=== PATIENT | male | born 1965 | race Caucasian/White ===

== ENCOUNTER 2019-08-01 10:51 | Observation (INO) | payer OTHER ==
[2019-08-01 12:25] LABS: Absolute Lymphocytes (CBC) 1.4 K/uL (0.7-4.9); Basophils % 0.3 % (0-1.3); Hematocrit 43.6 % (39.6-49.0); Lymphocytes % 13.7 % (15.3-44.8); MPV 7.7 fL (7.6-11.3); RBC Red Blood Cell Count 5.55 M/uL (4.33-5.43)
[2019-08-01 12:30] LABS: Protime INR 1.09
--- NOTE | 2019-08-01 12:44 | RAD REPORT ---
EXAM DESCRIPTION: CT - Head Brain Wo Cont - 08/01/2019 12:35 pm CLINICAL HISTORY: sub acute aphasia Headache, drowsiness COMPARISON: SINUS W O CONTRAST dated 12/05/2009; HEAD BRAIN W O CONTRAST dated 02/23/2009 TECHNIQUE: All CT scans are performed using dose optimization technique as appropriate and may inclu de automated exposure control or mA/KV adjustment according to patient size. FINDINGS: No intracranial hemorrhage, hydrocephalus or extra-axial fluid collection.Subtle area of d iminished density is noted in the left periventricular region.No midline shift. The paranasal sinuses and mastoids are clear. The calvarium is intact. IMPRESSION: No acute bleed is seen. Subtle area of diminished density left periventricular region m ay represent nonhemorrhagic subacute ischemia.
[2019-08-01 12:47] LABS: ALT/SGPT 23 U/L (12-78); AST/SGOT 15 U/L (15-37); Albumin 3.5 g/dL (3.4-5.0); Alkaline Phosphatase 125 U/L (45-117); BUN Blood Urea Nitrogen 11 mg/dL (7-18); Bicarbonate 28 mmol/L (21-32); Bilirubin Total 0.3 mg/dL (0.2-1.0); Glucose Level 104 mg/dL (74-106); Lipase 109 U/L (73-393); Potassium 3.9 mmol/L (3.5-5.1); Protein, Total 8.2 g/dL (6.4-8.2); Sodium Level 138 mmol/L (136-145); Troponin (Emerg Dept Use Only) < 0.02 ng/mL (0.0-0.045)
--- NOTE | 2019-08-01 12:49 | RAD REPORT ---
EXAM DESCRIPTION: CTAbdomen Pelvis W Contrast - 08/01/2019 12:36 pm CLINICAL HISTORY: Abdominal pain. GI bleeding COMPARISON: No comparisons TECHNIQUE: Biphasic CT imaging of the abdomen and pelvis was performed with 100 ml non-ionic IV cont rast. All CT scans are performed using dose optimization technique as appropriate and may include automated exposure control or mA/KV adjustment according to patient size. FINDINGS: The lung bases are clear. The liver, spleen, pancreas, adrenal glands and kidneys are within normal limits. No bowel obstruction, free air, free fluid or abscess. The appendix is normal. Several mildly thicke dmitri small bowel loops are present including the ileum with several enlarged small bowel mesenteric ly mph nodes. No evidence of significant lymphadenopathy. Small bilateral fat containing inguinal hernia s. No suspicious bony findings. IMPRESSION: Findings could indicate inflammatory bowel disease or infectious enteritis.
[2019-08-01 12:58] LABS: Blood Morphology Comment NOT SEEN (NOT SEEN); Platelet Estimate ADEQ
--- NOTE | 2019-08-01 13:04 | RAD REPORT ---
EXAM DESCRIPTION: Ruben Single View08/01/2019 12:46 pm CLINICAL HISTORY: Abdominal pain COMPARISON: 2018 FINDINGS: The lungs appear clear of acute infiltrate. The heart is normal size IMPRESSION: No acute abnormalities displayed
[2019-08-01] MEDS ORDERED: NICOTINE 21 MG/PAT TD ONE (14:34)
--- NOTE | 2019-08-01 15:41 | P.HP ---
Certification for Inpatient Patient admitted to: Observation With expected LOS: <2 Midnights Patient will require the following post-hospital care: None Practitioner: I am a practitioner with admitting privileges, knowledge of patient current condition, hospital course, and medical plan of care. Services: Services provided to patient in accordance with Admission requirements found in Title 42 Section 412.3 of the Code of Federal Regulations Patient History Date of Service: 08/01/19 Primary Care Provider: Dr. Chun Reason for admission: Difficulty with speech History of Present Illness: 54-year-old male with history of some difficulty with speech over the past week. This all started about a week ago. He had some slurred speech at that time. He had some difficulty expressing his words. He also noticed a droop in his right facial region. The patient did not go to the ER at that time. This continued to persist. Patient also has been complaining of some often on diarrhea with rectal bleeding over the past 5 years. He came to the ER for further evaluation. Patient denies any fever, chills, cough or congestion. No shortness of breath noted. No chest pain noted. In the ER patient was evaluated. CT scan showed subacute left periventricular region CVA. CT abdomen showed some inflammatory changes to the small bowel suspicious for enteritis. White count 10.1, hemoglobin 13.7. Sodium 138, GFR within normal range. Patient was admitted for further evaluation. When I saw the patient ER, patient appeared appropriate. He was able to converse appropriately. No headaches, dizziness. Blood pressure was slightly elevated. Home medications list reviewed: Yes - Past Medical/Surgical History Diabetic: No Past Medical History: Patient denies medical history -: Tobacco abuse -: Cyst to the right groin Psychosocial/ Personal History: Patient lives at home. He is a ski lift attendant - Family History Family History: Reviewed- Non-Contributory - Social History Smoking Status: Heavy Tobacco smoker (>10 cigarettes/day) Counseled patient to stop smoking for: less than 10 minutes Smoking therapy provided: Yes Patient receptive to therapy: Yes Alcohol use: Yes CD- Drugs: No Caffeine use: Yes Place of Residence: Home Review of Systems General: As per HPI Eyes: Unremarkable ENT: Unremarkable Respiratory: Unremarkable Cardiovascular: Unremarkable Gastrointestinal: As per HPI Genitourinary: Unremarkable Musculoskeletal: Unremarkable Integumentary: Unremarkable Neurological: As per HPI Lymphatics: Unremarkable Physical Examination - Physical Exam General: Alert, In no apparent distress, Oriented x3, Cooperative HEENT: Atraumatic, Mucous membr. moist/pink Neck: Supple, No Thyromegaly Respiratory: Clear to auscultation bilaterally, Normal air movement Cardiovascular: Normal pulses, Regular rate/rhythm Gastrointestinal: Normal bowel sounds, Soft and benign, Non-distended, No tenderness, No masses, No rebound, No guarding Musculoskeletal: No erythema, No tenderness, No warmth Integumentary: No tenderness/swelling, No erythema, No warmth, No cyanosis Neurological: Normal speech, Normal strength at 5/5 x4 extr, Normal tone, Normal affect - Studies Laboratory Data (last 24 hrs) 08/01/19 12:10: PT 12.8 H, INR 1.09 08/01/19 12:10: Sodium 138, Potassium 3.9, BUN 11, Creatinine 0.92, Glucose 104, Total Bilirubin 0.3, AST 15, ALT 23, Alkaline Phosphatase 125 H, Lipase 109 08/01/19 12:10: WBC 10.1, Hgb 13.7, Hct 43.6, Plt Count 314 Assessment and Plan - Plan Impression: Difficulty with speech with CT scan showing subacute left periventricular region CVA Enteritis infectious versus inflammatory Tobacco abuse Suspect underlying COPD Plan: Difficulty with speech with CT scan showing subacute left periventricular region CVA: Patient will be admitted to further evaluate for underlying subacute CVA. Will continue CVA protocol. Will obtain echocardiogram, carotid Doppler and stroke protocol MRI. Neurology consulted. Will start aspirin, Lipitor, and provide DVT prophylaxis-Lovenox. Will monitor lab closely. Will continue to monitor and adjust. Will also start folic acid. Will physical therapy evaluate patient. Will assess swallowing. Will continue to reassess. Anticipate improvement over the next 24 hr with possible discharge. Enteritis infectious versus inflammatory: This appears chronic. Will start Cipro and Flagyl. This can be further evaluated as an outpatient with GI. Patient will need colonoscopy in the near future. Tobacco abuse: Tobacco cessation addressed in detail. Will provide nicotine patch. Suspect underlying COPD: Will start medication. Patient will require pulmonolo gy evaluation as an outpatient. Discharge Plan: Home Plan to discharge in: 24 Hours - Advance Directives Does patient have a Living Will: No Does patient have a Durable POA for Healthcare: No - Code Status/Comfort Care Code Status Assessed: Yes (Patient is full code) Time Spent Managing Pts Care (In Minutes): 55
--- NOTE | 2019-08-01 16:06 | EDPHYS ---
Physician Documentation [facility] Name: Daquan Landry Age: 54 yrs Sex: Male : 1965 Arrival Date: 08/01/2019 Time: 10:55 Bed 13 Private MD: Alan Chun ED Physician Leonel Sosa Historical: - Allergies: 07/31 11:20 PENICILLINS; hb - Home Meds: 11:20 Enbrel subcutaneous subcutaneous [Active]; hb - PMHx: 11:20 psoriatic arthritis; hb - PSHx: 11:20 None; hb - Immunization history:: Adult Immunizations up to date. - Social history:: Smoking status: Patient denies any tobacco usage or history of. Vital Signs: 11:17 BP 162 / 104; Pulse 106; Resp 16; Temp 97.9; Pulse Ox 100% ; Weight 92.99 kg; Height 6 hb ft. 2 in. (187.96 cm); Pain 5/10; 14:30 BP 143 / 101; Pulse 107; Resp 16; Pulse Ox 100% ; ah 15:30 BP 132 / 94; Pulse 93; Resp 16; Pulse Ox 99% ; ah 17:19 BP 140 / 103; Pulse 92; Resp 16; Pulse Ox 100% ; ah 11:17 Body Mass Index 26.32 (92.99 kg, 187.96 cm) hb MDM: 13:49 Patient medically screened. ps1 07/31 11:53 Order name: CBC with Diff; Complete Time: 13:49 ps1 07/31 11:53 Order name: CMP; Complete Time: 13:49 ps1 07/31 11:53 Order name: PT-INR; Complete Time: 13:49 ps1 07/31 11:53 Order name: Lipase; Complete Time: 13:49 ps1 07/31 11:53 Order name: Troponin (emerg Dept Use Only); Complete Time: 13:49 ps1 07/31 12:58 Order name: Manual Differential; Complete Time: 13:49 EDMS 07/31 11:53 Order name: CT Head Brain wo Cont; Complete Time: 13:49 ps1 07/31 11:53 Order name: CXR XRAY; Complete Time: 13:49 ps1 07/31 11:53 Order name: EKG - Nurse/Tech; Complete Time: 12:34 ps1 07/31 12:36 Order name: Abdomen ; Complete Time: 13:49 EDND 07/31 13:55 Order name: Lipid Profile; Complete Time: 16:41 ps1 Administered Medications: 15:00 Drug: Nicotine 21 mg/24 hr 1 patches Route: Transdermal; Site: affected area; 16:00 Follow up: Response: No adverse reaction Disposition: 08/01/19 16:05 Hospitalization ordered by Malachi Ramirez for Observation. Preliminary diagnosis are Dysarthria, Lower GI bleed. - Bed requested for Telemetry/MedSurg (observation). - Status is Observation. - Condition is Fair. - Problem is new. - Symptoms are unchanged. Signatures: Dispatcher [employer] EDMS Belen Owens Cheryl Richmond, RN RN Leonel Sosa MD MD [facility] Pam Nunez RN RN Corrections: (The following items were deleted from the chart) 12:36 11:54 Abdomen Pelvis W/Wo Con+CT.RAD.BRZ ordered. EDND EDMS 13:57 13:56 HEMOGLOBIN A1C+CHEM A1C.LAB.BRZ ordered. EDND EDMS 16:05 16:05 Hospitalization Ordered by Malachi Ramirez DO for Observation. Preliminary bd diagnosis is Dysarthria; Lower GI bleed. Bed requested for Telemetry/MedSurg (observation). Status is Observation. Condition is Fair. Problem is new. Symptoms are unchanged. ps1 18:27 16:05 08/01/2019 16:05 Hospitalization Ordered by Malachi Ramirez DO for Observation. Preliminary diagnosis is Dysarthria; Lower GI bleed. Bed requested for Telemetry/MedSurg (observation). Status is Observation. Condition is Fair. Problem is new. Symptoms are unchanged. bd
--- NOTE | 2019-08-01 16:06 | ER ---
Nurse's Notes [facility] Name: Daquan Landry Age: 54 yrs Sex: Male : 1965 Arrival Date: 08/01/2019 Time: 10:55 Bed 13 Private MD: Alan hCun Diagnosis: Dysarthria;Lower GI bleed Presentation: 07/31 11:17 Chief complaint: Dark red rectal bleeding, nausea, diffuse abdominal pain, and hb abdominal bloating x 1 week. Coronavirus screen: Proceed with normal triage. Ebola Screen: No symptoms or risks identified at this time. Initial Sepsis Screen: Does the patient meet any 2 criteria? No. Patient's initial sepsis screen is negative. Does the patient have a suspected source of infection? No. Patient's initial sepsis screen is negative. Risk Assessment: Do you want to hurt yourself or someone else? Patient reports no desire to harm self or others. Onset of symptoms was July 2019. 11:17 Method Of Arrival: Ambulatory hb 11:17 Acuity: HENRY 3 hb Historical: - Allergies: 11:20 PENICILLINS; hb - Home Meds: 11:20 Enbrel subcutaneous subcutaneous [Active]; hb - PMHx: 11:20 psoriatic arthritis; hb - PSHx: 11:20 None; hb - Immunization history:: Adult Immunizations up to date. - Social history:: Smoking status: Patient denies any tobacco usage or history of. Screenin:47 Abuse screen: Denies threats or abuse. Nutritional screening: No deficits noted. Tuberculosis screening: No symptoms or risk factors identified. Fall Risk None identified. Assessment: 11:30 General: Appears in no apparent distress. Pain: Complains of pain in abdomen Pain does ah not radiate. Neuro: Level of Consciousness is awake, alert, Oriented to person, place, time. Cardiovascular: Heart tones S1 S2 present. Respiratory: Airway is patent Respiratory effort is even, unlabored, Respiratory pattern is regular, symmetrical. GI: Abdomen is distended, Stools are reported to be loose, Last BM was August 01, 2019. Bowel sounds present X 4 quads. Abdomen is tender to palpation X 4 quads. Reports rectal bleeding. : No signs and/or symptoms were reported regarding the genitourinary system. EENT: No signs and/or symptoms were reported regarding the EENT system. Derm: No signs and/or symptoms reported regarding the dermatologic system. Musculoskeletal: No signs and/or symptoms reported regarding the musculoskeletal system. 12:30 Reassessment: No changes from previously documented assessment. Patient and/or family ah updated on plan of care and expected duration. Pain level reassessed. 13:30 Reassessment: Awaiting results from labs and radiology, no needs voiced at this time. 14:45 Reassessment: Pt asked if he could go out and smoke a cigarette. Informed MD and ah received order to place nicotene patch. Informed Pt of risks of going outside and that this was a smoke free facility and offered him the patch. Pt accepted. Patch placed to right deltoid. 15:45 Reassessment: Pt lying in bed resting at this time. Anxiety from wanting to smoke is ah down. No needs voiced at this time. 16:15 Reassessment: Awaiting room assignment. 17:30 Reassessment: Pt taken up to 2nd floor to room 212 by tech in wheelchair. Pt tolerated ah well. Vital Signs: 11:17 BP 162 / 104; Pulse 106; Resp 16; Temp 97.9; Pulse Ox 100% ; Weight 92.99 kg; Height 6 hb ft. 2 in. (187.96 cm); Pain 5/10; 14:30 BP 143 / 101; Pulse 107; Resp 16; Pulse Ox 100% ; ah 15:30 BP 132 / 94; Pulse 93; Resp 16; Pulse Ox 99% ; ah 17:19 BP 140 / 103; Pulse 92; Resp 16; Pulse Ox 100% ; ah 11:17 Body Mass Index 26.32 (92.99 kg, 187.96 cm) hb ED Course: 10:55 Patient arrived in ED. mr 10:55 Alan Chun DO is Private Physician. mr 11:18 Triage completed. hb 11:39 Leonel Sosa MD is Attending Physician. ps1 11:48 Pam Nunez, RN is Primary Nurse. ah 12:10 Inserted saline lock: 20 gauge in right antecubital area, using aseptic technique. ah 12:33 EKG done, by ED staff, reviewed by Leonel Sosa MD. jp3 12:36 CT Head Brain wo Cont In Process Unspecified. EDMS 12:38 Abdomen In Process Unspecified. EDMS 12:44 CXR XRAY In Process Unspecified. EDCA 16:04 Malachi Ramirez DO is Hospitalizing Provider. ps1 16:30 No provider procedures requiring assistance completed. Patient admitted, IV remains in place. 17:23 Arm band placed on right wrist. 17:23 Patient has correct armband on for positive identification. Placed in gown. Bed in low ah position. Call light in reach. Side rails up X 1. Administered Medications: 15:00 Drug: Nicotine 21 mg/24 hr 1 patches Route: Transdermal; Site: affected area; 16:00 Follow up: Response: No adverse reaction Outcome: 16:05 Decision to Hospitalize by Provider. ps1 16:45 Admitted to Med/surg accompanied by tech, via wheelchair, room 212, with chart, Report called to MICHELE Akins 16:45 Condition: stable 16:45 Instructed on the need for admit. 18:27 Patient left the ED. Signatures: Dispatcher [employer] [facility] Ashlee Ardon Heather, RN RN Leonel Sosa MD MD ps1 Ha Mojica [id number] Pam Nunez RN RN
[2019-08-01] MEDS ORDERED: ALBUTEROL INHALER 60 PUFF/8 GM IH PRN (18:11)
[2019-08-01] MEDS ORDERED: ONDANSETRON 4 MG/2 ML VIAL IV PRN (18:11)
[2019-08-01] MEDS ORDERED: ACETAMINOPHEN 500 MG TAB PO PRN (18:11)
[2019-08-01 18:25] VITALS: BMI 26.0
[2019-08-01] MEDS: NA CHLORIDE 0.9% 1,000 ML IV SCH (19:46)
[2019-08-01] MEDS: FAMOTIDINE 20 MG TAB PO SCH (20:38)
[2019-08-01] MEDS: metroNIDAZOLE 500 MG TABLET PO SCH (20:38)
[2019-08-01] MEDS: CIPROFLOXACIN HCL 500 MG TAB PO SCH (20:39)
[2019-08-01] MEDS: DULERA 100/5 (MOMETASONE/FORMOTEROL) INHALER IH SCH (20:39)
[2019-08-01] MEDS ORDERED: ATORVASTATIN 40 MG TAB PO SCH (21:00)
[2019-08-01 21:21] LABS: Barbiturates NEGATIVE (NEGATIVE); Benzodiazepines NEGATIVE (NEGATIVE); Cocaine NEGATIVE (NEGATIVE); METHAMPHETAM NEGATIVE (NEGATIVE); Methadone NEGATIVE (NEGATIVE); Opiates NEGATIVE (NEGATIVE); Phencyclidine NEGATIVE (NEGATIVE); THC Cannibis NEGATIVE (NEGATIVE)
[2019-08-02 01:10] VITALS: O2SAT 96
[2019-08-02 04:11] LABS: Absolute Lymphocytes (CBC) 1.5 K/uL (0.7-4.9); Basophils % 0.5 % (0-1.3); Hematocrit 40.3 % (39.6-49.0); Lymphocytes % 25.9 % (15.3-44.8); MPV 7.6 fL (7.6-11.3); RBC Red Blood Cell Count 5.08 M/uL (4.33-5.43)
[2019-08-02 04:45] LABS: Magnesium 2.1 mg/dL (1.8-2.4); T4,Total 9.2 ug/dL (4.5-12.1); Thyroid Stimulating Hormone 1.8 uIU/mL (0.360-3.740)
[2019-08-02] MEDS: NA CHLORIDE 0.9% 1,000 ML IV SCH (07:58)
[2019-08-02] MEDS: CIPROFLOXACIN HCL 500 MG TAB PO SCH (07:59)
[2019-08-02] MEDS: metroNIDAZOLE 500 MG TABLET PO SCH ×2 (07:59→16:00)
[2019-08-02] MEDS: FAMOTIDINE 20 MG TAB PO SCH (07:59)
--- NOTE | 2019-08-02 08:44 | P.PN ---
Date of Service: 08/01/19 Patient has persistent cough and congestion; this has been going on for a couple of weeks. In light of current pandemic will rule out COVID-19 infection. Will proceed with serologic testing.
[2019-08-02] MEDS ORDERED: NICOTINE 21 MG/PAT TD SCH (09:00)
[2019-08-02] MEDS ORDERED: ASPIRIN EC 81 MG TAB PO SCH (09:00)
[2019-08-02] MEDS ORDERED: FOLIC ACID 1 MG TABLET PO SCH (09:00)
[2019-08-02] MEDS ORDERED: predniSONE 20 MG TAB PO SCH (09:16)
[2019-08-02] MEDS: DULERA 100/5 (MOMETASONE/FORMOTEROL) INHALER IH SCH (10:00)
[2019-08-02] MEDS ORDERED: ALPRAZOLAM 0.5 MG TABLET PO ONE (10:49)
[2019-08-02 12:11] LABS: C.diff Antigen/Toxin Ag neg : Tox neg (NEG : NEG)
--- NOTE | 2019-08-02 14:56 | RAD REPORT ---
EXAM DESCRIPTION: MRI - Brain W/Wo Cont - 08/02/2019 2:47 pm CLINICAL HISTORY: subacute cva Headache, drowsiness COMPARISON: MRA Head Wo Cont dated 08/02/2019 TECHNIQUE: Multi-sequence, multiplanar MR imaging of the brain was performed with contrast. FINDINGS: No intracranial hemorrhage, hydrocephalus, or extra-axial fluid collection. No edema or sh ift of midline structures. No intracranial mass. 12 x 10 mm area of restricted diffusion with subtle areas of post-contrast enhancement seen left periventricular white matter. This area does not demonst rate significant diminished ADC map signal. The midline structures are normally formed. Mild mucosal thickening left maxillary antrum. IMPRESSION: 12 x 10 mm subacute infarct left periventricular white matter. No midline shift or significant hemorrhage seen.
--- NOTE | 2019-08-02 14:58 | RAD REPORT ---
EXAM DESCRIPTION: MRI - MRA Head Wo Cont - 08/02/2019 2:47 pm CLINICAL HISTORY: subacute cva CVA COMPARISON: Head Brain Wo Cont dated 08/01/2019 FINDINGS: 3D noncontrast [id number] MR angiography of the [place] was performed. No aneurysm, flow-limiting stenosis or vascular malformation is seen. Forward flow seen in codominant vertebral arteries. The visualized dural venous sinuses appear patent. IMPRESSION: No significant flow abnormality of the [place] is identified.
--- NOTE | 2019-08-02 15:00 | RAD REPORT ---
EXAM DESCRIPTION: MRI - MRA Neck W/Wo Cont - 08/02/2019 2:47 pm CLINICAL HISTORY: subacute cva Headache, drowsiness COMPARISON: Carotid Artery Bilateral dated 08/02/2019 FINDINGS: Contrast enhance 2D [id number] MR angiography of the neck vessels was performed. Left aortic arch is seen with normal great vessel origin pattern. Both common carotid arteries and subclavian arteries are patent. Both internal carotid artery show no significant stenosis. Both vertebral arteries are patent and appear codominant. IMPRESSION: No significant flow abnormality of the neck vessels identified.
--- NOTE | 2019-08-02 15:00 | RAD REPORT ---
EXAM DESCRIPTION: US - CP - 08/02/2019 2:35 pm CLINICAL HISTORY: subacute cva Headache, drowsiness, CVA COMPARISON: MRA Neck W/Wo Cont dated 08/02/2019 TECHNIQUE: Real-time sonographic evaluation of both carotid systems was performed. Doppler interroga tion was performed with waveform tracing bilaterally. FINDINGS: Normal high resistance waveforms are noted in both external carotid arteries. The common c arotid arteries and internal carotid arteries show normal low resistance waveforms. No significant plaque formation is seen. Peak systolic and end diastolic velocity values and the ICA/ CCA ratios are in the non-hemodynamically significant range. Antegrade flow seen in both vertebral arteries. IMPRESSION: No significant atherosclerotic changes noted. No evidence of a hemodynamically significant stenosis.
--- NOTE | 2019-08-02 16:17 | P.DS ---
Admission Date: 08/01/19 Discharge Date: 08/02/19 Primary Care Provider: Dr. Chun Disposition: ROUTINE DISCHARGE Discharge Condition: GOOD Reason for Admission: Difficulty with speech Consultations: Neurology-Dr. Hurtado Procedures: CT Scan: FINDINGS: The lung bases are clear. The liver, spleen, pancreas, adrenal glands and kidneys are within normal limits. No bowel obstruction, free air, free fluid or abscess. The appendix is normal. Several mildly thickened small bowel loops are present including the ileum with several enlarged small bowel mesenteric lymph nodes. No evidence of significant lymphadenopathy. Small bilateral fat containing inguinal hernias. No suspicious bony findings. IMPRESSION: Findings could indicate inflammatory bowel disease or infectious enteritis. MRI Brain: FINDINGS: No intracranial hemorrhage, hydrocephalus, or extra-axial fluid collection. No edema or shift of midline structures. No intracranial mass. 12 x 10 mm area of restricted diffusion with subtle areas of post-contrast enhancement seen left periventricular white matter. This area does not demonstr ate significant diminished ADC map signal. The midline structures are normally formed. Mild mucosal thickening left maxillary antrum. IMPRESSION: 12 x 10 mm subacute infarct left periventricular white matter. No midline shift or significant hemorrhage seen. MRA Neck: FINDINGS: Contrast enhance 2D [id number] MR angiography of the neck vessels was performed. Left aortic arch is seen with normal great vessel origin pattern. Both common carotid arteries and subclavian arteries are patent. Both internal carotid artery show no significant stenosis. Both vertebral arteries are patent and appear codominant. IMPRESSION: No significant flow abnormality of the neck vessels identified. MRA Brain: COMPARISON: Head Brain Wo Cont dated 08/01/2019 FINDINGS: 3D noncontrast [id number] MR angiography of the [place] was performed. No aneurysm, flow-limiting stenosis or vascular malformation is seen. Forward flow seen in codominant vertebral arteries. The visualized dural venous sinuses appear patent. IMPRESSION: No significant flow abnormality of the [place] is identified Carotid Doppler: FINDINGS: Normal high resistance waveforms are noted in both external carotid arteries. The common carotid arteries and internal carotid arteries show normal low resistance waveforms. No significant plaque formation is seen. Peak systolic and end diastolic velocity values and the ICA/CCA ratios are in the non-hemodynamically significant range. Antegrade flow seen in both vertebral arteries. IMPRESSION: No significant atherosclerotic changes noted. No evidence of a hemodynamically significant stenosis. Medical Problem List: Difficulty with speech with CT scan showing subacute left periventricular region CVA Enteritis likely infectious versus inflammatory Hypertension Tobacco abuse GERD Suspect underlying COPD with mild exacerbation Psoriatic arthritis Brief History of Present Illness: 54-year-old male with history of some difficulty with speech over the past week. This all started about a week ago. He had some slurred speech at that time. He had some difficulty expressing his words. He also noticed a droop in his right facial region. The patient did not go to the ER at that time. This continued to persist. Patient also has been complaining of some often on diarrhea with rectal bleeding over the past 5 years. He came to the ER for further evaluation. Patient denies any fever, chills, cough or congestion. No shortness of breath noted. No chest pain noted. In the ER patient was evaluated. CT scan showed subacute left periventricular region CVA. CT abdomen showed some inflammatory changes to the small bowel suspicious for enteritis. White count 10.1, hemoglobin 13.7. Sodium 138, GFR within normal range. Patient was admitted for further evaluation. When I saw the patient ER, patient appeared appropriate. He was able to converse appropriately. No headaches, dizziness. Blood pressure was slightly elevated. Hospital Course: Patient presented with difficulty with speech. CT scan revealed subacute left periventricular region CVA. This was confirmed with MRI. MRA brain, MRA neck, and carotid unremarkable. Patient seen by neurology. Patient also seen by physical therapy. Patient able to ambulate and doing well. Physical therapy recommends speech therapy as an outpatient. LDL within normal range. Neurology recommends to continue aspirin 81 mg daily, Lipitor 10 mg daily, folic acid 1 mg daily and lisinopril 5 mg daily. Recommend follow up with neurology in 2-4 weeks to follow up this hospitalization. Patient would benefit with speech therapy as an outpatient. This can be arranged by his PCP. Recommend follow up with his PCP to further monitor and address. Prior to discharge lab for autoimmune disease/hypercoagulable global workup will be done to further evaluate underlying CVA. This can be followed up with Neurology or his PCP. Tobacco cessation addressed in detail. Patient also found to have enteritis on CT scan. Patient has done well. Patient responded well to antibiotic therapy. At discharge he will continue with Cipro 500 mg twice daily and Flagyl 500 mg 3 times a day for 10 days. Recommend follow up with GI as an outpatient to further evaluate. Patient will require EGD and colonoscopy in 4-6 weeks. This can be done with the help of GI. Patient had slight elevation in blood pressure. As recommended above patient will continue with lisinopril 5 mg daily. Recommend to monitor blood pressure daily. Recommend to maintain blood pressure less 150/80. Further adjustment ca n be done by his PCP. Patient with tobacco abuse. Tobacco cessation addressed in detail. Patient desires to quit. Patient will continue with nicotine patch as an outpatient. Patient with underlying COPD. Patient with mild exacerbation. At discharge patient will continue with prednisone 20 mg 1 pill twice daily for 5 days then 1 pill once daily for 5 days. Patient will be started on Dulera 2 puffs twice daily and continue with Pro air 2 puffs 3 times a day as needed for shortness of breath. Recommend follow up with pulmonology as an outpatient to further monitor and address. Patient will require pulmonary function test to further evaluate and assess. Patient likely with underlying GERD. At discharge patient may continue with Protonix 40 mg daily. As recommended above patient will need to follow up with GI to further address. Patient with underlying psoriatic arthritis. Patient will continue with Rheumatology evaluation and medication. Vital Signs/Physical Exam: Temp Pulse Resp BP Pulse Ox 97 F 88 20 140/89 20 L 08/02/19 12:00 08/02/19 12:00 08/02/19 12:00 08/02/19 12:00 08/02/19 12:00 General: Alert, In no apparent distress, Oriented x3, Cooperative HEENT: Atraumatic Neck: Supple Respiratory: Clear to auscultation bilaterally, Normal air movement Cardiovascular: Normal pulses, Regular rate/rhythm Gastrointestinal: Normal bowel sounds, Soft and benign, Non-distended, No tenderness, No masses, No rebound, No guarding Musculoskeletal: No erythema, No tenderness, No warmth Integumentary: No tenderness/swelling, No erythema, No warmth, No cyanosis Neurological: Normal speech, Normal strength at 5/5 x4 extr, Normal tone, Normal affect Laboratory Data at Discharge: WBC 5.6 K/uL (4.3-10.9) D 08/02/19 03:40 Hgb 12.8 g/dL (13.6-17.9) L 08/02/19 03:40 Hct 40.3 % (39.6-49.0) 08/02/19 03:40 Plt Count 267 K/uL (152-406) 08/02/19 03:40 PT 12.8 SECONDS (9.5-12.5) H 08/01/19 12:10 INR 1.09 08/01/19 12:10 Sodium 139 mmol/L (136-145) 08/02/19 03:40 Potassium 4.0 mmol/L (3.5-5.1) 08/02/19 03:40 BUN 10 mg/dL (7-18) 08/02/19 03:40 Creatinine 0.91 mg/dL (0.55-1.3) 08/02/19 03:40 Glucose 91 mg/dL (74-106) 08/02/19 03:40 Magnesium 2.1 mg/dL (1.8-2.4) 08/02/19 03:40 Total Bilirubin 0.3 mg/dL (0.2-1.0) 08/01/19 12:10 AST 15 U/L (15-37) 08/01/19 12:10 ALT 23 U/L (12-78) 08/01/19 12:10 Alkaline Phosphatase 125 U/L (45-117) H 08/01/19 12:10 Triglycerides 119 mg/dL (<150) 08/02/19 03:40 Cholesterol 108 mg/dL (<200) 08/02/19 03:40 HDL Cholesterol 35 mg/dL (40-60) L 08/02/19 03:40 Cholesterol/HDL Ratio 3.09 08/02/19 03:40 Lipase 109 U/L (73-393) 08/01/19 12:10 Home Medications: Etanercept [Enbrel] 50 mg IM SEECOM 08/01/19 Loratadine [Claritin*] 10 mg PO DAILY 08/01/19 Albuterol Inhaler [Ventolin Inhaler*] 2 puff IH Q6H PRN #1 hfa.aer.ad 08/02/19 Aspirin [Aspirin EC 81 MG] 81 mg PO DAILY #90 tablet. 08/02/19 Atorvastatin Calcium [Lipitor] 10 mg PO BEDTIME #30 tab 08/02/19 Ciprofloxacin HCl [Cipro 500 MG Tablet] 500 mg PO BID #20 tab 08/02/19 Folic Acid 1 mg PO DAILY #90 tablet 08/02/19 Lisinopril [Zestril] 5 mg PO DAILY #30 tablet 08/02/19 Mometasone/Formoterol [Dulera 100 Mcg/5 Mcg Inhaler] 2 puff IH BID #1 inhaler 08/02/19 Nicotine [Nicoderm*] 21 mg TD DAILY #30 patch.td24 08/02/19 Pantoprazole Sodium [Protonix] 40 mg PO DAILY #30 tablet. 08/02/19 metroNIDAZOLE [Flagyl] 500 mg PO Q8H #30 tablet 08/02/19 predniSONE [Prednisone*] 20 mg PO SEECOM #15 tab 08/02/19 New Medications: Aspirin [Aspirin EC 81 MG] 81 mg PO DAILY #90 tablet. Ciprofloxacin HCl [Cipro 500 MG Tablet] 500 mg PO BID #20 tab Mometasone/Formoterol [Dulera 100 Mcg/5 Mcg Inhaler] 2 puff IH BID #1 inhaler metroNIDAZOLE [Flagyl] 500 mg PO Q8H #30 tablet Folic Acid 1 mg PO DAILY #90 tablet Atorvastatin Calcium [Lipitor] 10 mg PO BEDTIME #30 tab Nicotine [Nicoderm*] 21 mg TD DAILY #30 patch.td24 predniSONE [Prednisone*] 20 mg PO SEECOM #15 tab Pantoprazole Sodium [Protonix] 40 mg PO DAILY #30 tablet. Albuterol Inhaler [Ventolin Inhaler*] 2 puff IH Q6H PRN #1 hfa.aer.ad PRN Reason: Shortness Of Breath Lisinopril [Zestril] 5 mg PO DAILY #30 tablet Patient Discharge Instructions: 1. Follow up with PCP. 2. Patient presented with difficulty with speech. CT scan revealed subacute left periventricular region CVA. This was confirmed with MRI. MRA brain, MRA neck, and carotid unremarkable. Patient seen by neurology. Patient also seen by physical therapy. Patient able to ambulate and doing well. Physical therapy recommends speech therapy as an outpatient. LDL within normal range. Neurology recommends to continue aspirin 81 mg daily, Lipitor 10 mg daily, folic acid 1 mg daily and lisinopril 5 mg daily. Recommend follow up with neurology in 2-4 weeks to follow up this hospitalization. Patient would benefit with speech therapy as an outpatient. This can be arranged by his PCP. Recommend follow up with his PCP to further monitor and address. Prior to discharge lab for autoimmune disease/hypercoagulable global workup will be done to further evaluate underlying CVA. This can be followed up with Neurology or his PCP. Tobacco cessation addressed in detail. 3. Patient also found to have enteritis on CT scan. Patient has done well. Patient responded well to antibiotic therapy. At discharge he will continue with Cipro 500 mg twice daily and Flagyl 500 mg 3 times a day for 10 days. Recommend follow up with GI as an outpatient to further evaluate. Patient will require EGD and colonoscopy in 4-6 weeks. This can be done with the help of GI. 4. Patient had slight elevation in blood pressure. As recommended above patient will continue with lisinopril 5 mg daily. Recommend to monitor blood pressure daily. Recommend to maintain blood pressure less 150/80. Further adjustment can be done by his PCP. 5. Patient with tobacco abuse. Tobacco cessation addressed in detail. Patient desires to quit. Patient will continue with nicotine patch as an outpatient. 6. Patient with underlying COPD. Patient with mild exacerbation. At discharge patient will continue with prednisone 20 mg 1 pill twice daily for 5 days then 1 pill once daily for 5 days. Patient will be started on Dulera 2 puffs twice daily and continue with Pro air 2 puffs 3 times a day as needed for shortness of breath. Recommend follow up with pulmonology as an outpatient to further monitor and address. Patient will require pulmonary function test to further ev aluate and assess. 7. Patient likely with underlying GERD. At discharge patient may continue with Protonix 40 mg daily. As recommended above patient will need to follow up with GI to further address. 8. Patient with underlying psoriatic arthritis. Patient will continue with Rheumatology evaluation and medication. Diet: AHA Activity: Ad nelson Time spent managing pt's care (in minutes): 55
--- NOTE | 2019-08-02 16:20 | EKG ---
Test Date: 2019-08-01 Test Time: 12:27:50 Copier Repair Technician: RAYO MEASUREMENT RESULTS: Intervals: Rate: 104 MN: 132 QRSD: 72 QT: 316 QTc: 415 Woodruff: P: 54 MN: 132 QRS: 87 T: 75 INTERPRETIVE STATEMENTS: Sinus tachycardia with fusion complexes Otherwise normal ECG Compared to ECG 01/12/2012 11:31:27 Fusion complex(es) now present Sinus rhythm no longer present Electronically Signed On 08-02-19 16:18:09 CDT by Dallas Thakkar
[2019-08-02 16:50] VITALS: BP 133/85; TEMP 96.8
[2019-08-02 23:36] LABS: Rheumatoid Factor NEG (NEG)
--- NOTE | 2019-08-03 01:13 | CON ---
History Of Present Illness: Mr. Landry is a 54-year-old right-handed patient, who comes i nto the [facility] with difficulty speaking. The patient's symptoms were present over a wee k prior to his arrival at the hospital. He did not have difficulty in terms of arms or legs and stre ngth and sensation, however, there was reported right face. His imaging included a head C T scan, which showed a subtle area of diminished density in the left periventricular region consisten t with a subacute stroke. His subsequent brain MRI identified a subacute stroke, measuring 12 x 10 m m in the left periventricular white matter. There was no hemorrhagic conversion or midline shift. W hile in the hospital, blood pressures were essentially slightly elevated in the 130s to 140s and puls e 80s to 90s, and he was afebrile. His workup did show a normal INR of 1.09. There are pending stud ies for stroke in the young including protein C, protein S, antithrombin III, factor V Leiden. Urine tox screen was negative. Chemistries showed normal renal function. Blood glucose ranged from 91 to 104. Liver function studies show slightly elevated alkaline phosphatase. His HDL cholesterol sligh tly low at 35, LDL cholesterol was good at 49, total cholesterol 108, triglycerides 119. TSH normal at 1.8. Hemoglobin and hematocrit essentially unremarkable. White blood cell count normal. Platele ts number was normal. He does have pending rheumatoid factor, CHANDLER, and vons-tvpuft-duaopnej DNA. He patitis panel also pending. The patient's use of his extremities actually had returned towards his baseline and his ex pression and speech also significantly improved. He was actually discharged earlier by Dr. Ramirez to follow up in clinic in 1 month. Past Medical History: Patient denies any significant past medical history. Does, however, have a hi story of tobacco use. cyst in the right groin. 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 Family History: Noncontributory. Social History: At least 10 packs of cigarettes smoke daily and he does drink alcohol. Review of Systems: Unremarkable, except stated above. Physical Examination: Vital Signs: Blood pressure 133/85, pulse 96, respiratory rate 16, temperature 97, oxygen saturation 99%. Weight 202 pounds, height 6 feet 2 inches, BMI 26. General: Revealed no significant abnormalities. Neurologic: Some difficulty with words out, but no brigitte focal weakness in the face, arm, or leg nadeem reciated and no sensory abnormalities. Symmetric in terms of his coordination, reflexes, and gait is unremarkable. Assessment: Mr. Landry is a 54-year-old patient with subacute stroke, possibly in the setting of he eduardo tobacco use. He also uses alcohol regularly. He was not on an aspirin regimen. His lipid panel is unremarkable. Plan: 1.Aspirin 81 mg daily, Lipitor 40 mg at bedtime, folic acid 1 mg daily. Also, the patient is advise d to stop smoking cigarettes and drinking alcohol. 2.After discharge, follow up in Dr. Hurtado's clinic in 1 month. DONA/MYRNA Voice ID: [id number] Report ID: [id number]
--- NOTE | 2019-08-03 07:58 | ECHO ---
HEIGHT: 6 ft 2 in WEIGHT: 202 lb 12.8 oz DATE OF STUDY: 08/02/[address]: Malachi Ramirez DO 2-DIMENSIONAL: YES M.MODE: YES DOPPLER: YES COLOR FLOW: YES TDS: YES PORTABLE: NO DEFINITY: NO BUBBLE STUDY: NO DIAGNOSIS: SUBACUTE CEREBRAL VASCULAR ACCIDENT CARDIAC HISTORY: CATHERIZATION: NO SURGERY: NO PROSTHETIC VALVE: NO PACEMAKER: NO MEASUREMENTS (cm) DIASTOLIC (NORMALS) SYSTOLIC (NORMALS) IVSd 1.1 (0.6-1.2) LA Diam 2.4 (1.9-4.0) LVEF 51% LVIDd 4.4 (3.5-5.7) LVIDs 3.3 (2.0-3.5) %FS 26% LVPWd 1.2 (0.6-1.2) Ao Diam 2.8 (2.0-3.7) 2 DIMENSIONAL ASSESSMENT: RIGHT ATRIUM: NORMAL LEFT ATRIUM: NORMAL RIGHT VENTRICLE: NORMAL LEFT VENTRICLE: NORMAL TRICUSPID VALVE: NORMAL MITRAL VALVE: NORMAL PULMONIC VALVE: NORMAL AORTIC VALVE: NORMAL PERICARDIAL EFFUSION: NONE AORTIC ROOT: NORMAL LEFT VENTRICULAR WALL MOTION: NORMAL DOPPLER/COLOR FLOW: NORMAL COMMENTS: NORMAL 2D ECHOCARDIOGRAM WITH DOPPLER. NO VEGETATION. NO ATRIAL SEPTAL DEFECT. TECHNOLOGIST: Walt SOOD
[2019-08-07 02:20] LABS: HBsAG Nonreactive (Nonreactive)
[2019-08-08 11:37] LABS: Protein C Antigen 99 % (70-140)
== END 2019-08-02 17:55 | disposition home or self-care (01) ==
LOC: ER 10:51 → ERHOLD 14:41 → 2ND 17:35 → 4TH 20:08
PROVIDERS: ADMIT Family Medicine; ATTEND Family Medicine
DX: I63.89 Other cerebral infarction (principal); R47.9 Unspecified speech disturbances; Z20.828 Contact with and (suspected) exposure to other viral communicable diseases; A08.4 Viral intestinal infection, unspecified; I10 Essential (primary) hypertension; L40.50 Arthropathic psoriasis, unspecified; J44.1 Chronic obstructive pulmonary disease with (acute) exacerbation; J06.9 Acute upper respiratory infection, unspecified; K21.9 Gastro-esophageal reflux disease without esophagitis; R09.89 Other specified symptoms and signs involving the circulatory and respiratory systems; L72.9 Follicular cyst of the skin and subcutaneous tissue, unspecified; F17.210 Nicotine dependence, cigarettes, uncomplicated; Z71.6 Tobacco abuse counseling
CPT/HCPCS: 93005; 93306; 85025 ×2; 80048; 36415 ×2; 83735; 86430; 85610; 80061 ×2; 82947; 80307 ×8; 84436; 84443; 87324; 84484; 83690; 80053; 81241; 85301; 86038; 86225; 87449; 85302; 85305; 85306; 80074; 70450; 74177; 71045; 93880; 70553; 70544; 70549; 97112; 97116; 97161; 99285; U0002; Q9967; A9577; J7512; J7606; J7030 ×2; G0378 ×3

== ENCOUNTER 2021-06-28 12:31 | Emergency (ER) | payer OTHER ==
--- OUTSIDE RECORDS SUMMARY | 2021-06-28 12:34 | XMS REPORT | Continuity of Care Document ---
:1965 Author Organization [facility] t Address [address] [place] [address] Dr. Jacobsen [address] [place] [id number] Care Team Providers Name Role Phone JIMBO Attending Clinician Unavailable Tomas Chun Attending Clinician [phone] MILE_Armen Admitting Clinician Unavailable Payers Payer Name Policy Type Policy Number Effective Date Expiration Date [facility] [id number] Problems This patient has no known problems. Allergies, Adverse Reactions, Alerts This patient has no known allergies or adverse reactions. Medications This patient has no known medications. Procedures This patient has no known procedures. Encounters Start End Encounter Admission Attending Care Care Encounter Source Date/Time Date/Time Type Type Clinicians Facility Department ID 2020-11-26 2020-11-26 Outpatient MILE_R [facility] [id number] [place] 12:08:00 12:08:00 831 [facility] 2020-11-26 2020-11-26 Outpatient Mile [facility] [id number] 00:00:00 00:00:00 Alan [id number] Tomas [id number] Results Test Description Test Time Test Comments Results Result Comments Source SARS-COV2/RT-PCR ([facility]) 2019-08-02 00:48:00 Test Item Value Reference Range Interpretation Comme nts SARS-COV2/RT-PCR (test code = 5856520) Not Detected Not Detected, N egative SARS-COV-2 PERFORMING LAB (test code = [facility] 3692350) Negative results do not preclude SARS-CoV-2 infection and should not be used as the sole basis for patient management decisions. Negative results must be combined with clinical observations, patient history, and epidemiological information. A false negative result may occur if a specimen is improperly collected, transported or handled.The limit of detection for this assay is 250 copies/mL.This SARS CoV-2 test is a rapid, real-time RT-PCR test intended for the qualitative detection of nucleic acid from SARS-CoV-2 in a nasopharyngeal swab specimen collected from individuals suspected of COVID-19 by their healthcare provider.This test has not been Food and Drug Administration (FDA) cleared or approved and has been authorized by FDA under an Emergency Use Authorization (EUA). This EUA will be effective until the declaration that circumstances exist justifying the authorization of the emergency use of in vitro diagnostic tests for detection and/or diagnosis of COVID-19 is terminated under Section 564(b)(2) of the Act or the EUA is revoked under Section 564(g) of the Act.Fact Sheet for Healthcare Pro viders:https://www.[employer]/Documents/Xpert%20Xpress%20SARS%20CoV-2/Fact%20Sh eets/3023802%83VENG-VDC-8%20HEALTHCARE%20PROVIDERS%20FACT%20SHEET.pdfFact Sheet for Healthcare Patients:https://www.[employer]/Documents/Xpert%20Xpress%20SARS%20CoV-2/Fact%20Sheets/3023801%20SARS-COV -2%20PATIENT%20FACT%20SHEET.pdfPerforming Laboratory:[facility] [address]
[2021-06-28] MEDS ORDERED: LORazepam 2 MG/ML VIAL ONE (13:05)
[2021-06-28 13:15] LABS: Absolute Lymphocytes (CBC) 1.7 K/uL (0.7-4.9); Hematocrit 42.5 % (39.6-49.0); Lymphocytes % 11.7 % (15.3-44.8); MPV 7.2 fL (7.6-11.3); RBC Red Blood Cell Count 4.76 M/uL (4.33-5.43)
[2021-06-28] MEDS ORDERED: LEVALBUTEROL 1.25 MG/3 ML NEB ONE (13:20)
--- NOTE | 2021-06-28 13:31 | RAD REPORT ---
EXAM DESCRIPTION: RAD - Chest Single View - 06/28/2021 1:17 pm CLINICAL HISTORY: DYSPNEA COMPARISON: Single-view chest 08/01/2019 TECHNIQUE: AP portable chest image was obtained 06/28/2021 1:17 pm . FINDINGS: No peripheral mass or consolidation. Interstitial pattern is not outside of normal range a nd is similar to the examination. No new ranjan mass or lymphadenopathy evident. Heart and vascul ature are normal. No measurable pleural effusion and no pneumothorax. No acute bony abnormality seen. No acute aortic findings suspected. IMPRESSION: No acute cardiopulmonary process. No significant change prior imaging.
[2021-06-28 13:34] LABS: BUN Blood Urea Nitrogen 7 mg/dL (7-18); Bicarbonate 25 mmol/L (21-32); Glucose Level 118 mg/dL (74-106); Potassium 3.6 mmol/L (3.5-5.1); Sodium Level 134 mmol/L (136-145)
[2021-06-28 13:51] LABS: SARS-COV-2 RT PCR NEGATIVE (NEGATIVE)
--- NOTE | 2021-06-28 14:15 | EDPHYS ---
Physician Documentation [facility] Name: Daquan Landry Age: 56 yrs Sex: Male : 1965 Arrival Date: 06/28/2021 Time: 12:39 Bed 14 Private MD: ED Physician Davon Carlisle HPI: 06/28 12:52 This 56 yrs old Male presents to ER via EMS with complaints of Shortness Of Breath. kb 12:52 The patient has shortness of breath at rest. Onset: The symptoms/episode began/occurred kb 4 day(s) ago. Duration: The symptoms are continuous. The patient's shortness of breath is aggravated by exertion, talking, is alleviated by nothing. Associated signs and symptoms: The patient has no apparent associated signs or symptoms. Severity of symptoms: At their worst the symptoms were moderate in the emergency department the symptoms are unchanged. The patient has experienced similar episodes in the past, a few times. The patient has not recently seen a physician. Pt reports shortness of breath since Wednesday. States it was worse today so he called 911. Pt reports he feels like he is having panic attacks too. Historical: - Allergies: 12:41 PENICILLINS; ld1 - Home Meds: 12:41 omeprazole 20 mg Oral cpDR 1 cap once daily [Active]; ld1 - PMHx: 12:41 Psoriatic Arthritis; Chronic obstructive lung disease; Hypertensive disorder; ld1 - PSHx: 12:41 None; ld1 - Immunization history:: Adult Immunizations up to date, Client reports receiving the 2nd dose of the Covid vaccine. - Social history:: Smoking status: Patient reports the use of cigarette tobacco products, smokes three packs cigarettes per day. Patient/guardian denies using alcohol. ROS: 12:51 Constitutional: Negative for fever, chills, and weight loss. kb 12:51 Respiratory: Positive for dyspnea on exertion, shortness of breath. 12:51 Psych: Positive for anxiety. 12:51 All other systems are negative. Exam: 12:51 Head/Face: Normocephalic, atraumatic. ENT: Moist Mucous membranes Cardiovascular: kb Regular rate and rhythm with a normal S1 and S2. No gallops, murmurs, or rubs. No pulse deficits. Skin: Warm, dry with normal turgor. Normal color. MS/ Extremity: Pulses equal, no cyanosis. Neurovascular intact. Full, normal range of motion. Neuro: Awake and alert, GCS 15, oriented to person, place, time, and situation. Moves all extremities. Normal gait. 12:51 Constitutional: The patient appears alert, awake, anxious. 12:51 Respiratory: mild respiratory distress is noted, moderate respiratory distress is noted, Respirations: labored breathing, that is mild, that is moderate, tachypnea, Breath sounds: are clear throughout. 12:54 ECG was reviewed by the Attending Physician. kb Vital Signs: 12:40 BP 144 / 94; Pulse 123; Resp 24; Temp 98.9(TE); Pulse Ox 94% on R/A; Weight 88.9 kg; ld1 Height 5 ft. 11 in. (180.34 cm); Pain 0/10; 13:39 BP 137 / 89; Pulse 108; Resp 30; Pulse Ox 100% on Nebulizer Mask; dw3 13:42 Resp 24; Pulse Ox 99% on R/A; dw3 14:16 BP 128 / 88; Pulse 110; Resp 22; Pulse Ox 94% on R/A; dw3 12:40 Body Mass Index 27.34 (88.90 kg, 180.34 cm) ld1 MDM: 12:44 Patient medically screened. kb 12:51 Data reviewed: vital signs, nurses notes. Data interpreted: Pulse oximetry: on room air kb is 97 %. Interpretation: normal. 14:13 Counseling: I had a detailed discussion with the patient and/or guardian regarding: the kb historical points, exam findings, and any diagnostic results supporting the discharge/admit diagnosis, lab results, radiology results, the need for outpatient follow up, a family practitioner, to return to the emergency department if symptoms worsen or persist or if there are any questions or concerns that arise at home. ED course: Pt doing better now. No resp distress noted. Pt talking with family without getting short of breath. . 06/28 12:45 Order name: Basic Metabolic Panel; Complete Time: 13:36 kb 06/28 12:45 Order name: CBC with Diff; Complete Time: 13:28 kb 06/28 12:45 Order name: D-Dimer; Complete Time: 13:28 kb 06/28 12:45 Order name: Troponin HS; Complete Time: 13:36 kb 06/28 12:45 Order name: Blood Culture Adult (2) kb 06/28 12:45 Order name: Procalcitonin; Complete Time: 13:48 kb 06/28 12:45 Order name: XRAY Chest (1 view); Complete Time: 13:36 kb 06/28 12:45 Order name: EKG; Complete Time: 12:45 kb 06/28 12:45 Order name: Cardiac monitoring; Complete Time: 12:55 kb 06/28 12:45 Order name: EKG - Nurse/Tech; Complete Time: 12:55 kb 06/28 12:45 Order name: Lactate; Complete Time: 13:36 kb 06/28 12:53 Order name: COVID-19/FLU A+B (Document "Date of Onset" if Symptomatic); Complete Time: kb 13:51 06/28 12:45 Order name: IV Saline Lock; Complete Time: 13:10 kb 06/28 12:45 Order name: Labs collected and sent; Complete Time: 13:10 kb 06/28 12:45 Order name: O2 Per Protocol; Complete Time: 13:10 kb 06/28 12:45 Order name: O2 Sat Monitoring; Complete Time: 13:10 kb EC:54 Rate is 110 beats/min. Rhythm is regular. Right axis deviation noted. AL interval is kb normal at 126 msec. QRS interval is normal at 72 msec. QT interval is normal at 308 msec. Administered Medications: 13:15 Drug: Ativan (LORazepam) 0.5 mg Route: IVP; Site: left antecubital; dw3 13:27 Drug: Xopenex (levalbuterol) 2.5 mg Route: Inhalation; dw3 Disposition: 16:23 Co-signature as Attending Physician, Davon Carlisle MD. rn Disposition Summary: 06/28/21 14:14 Discharge Ordered Location: Home kb Condition: Stable kb Diagnosis - COPD/ Chronic obstructive pulmonary disease with (acute) exacerbation kb Followup: kb - With: Emergency Department - When: As needed - Reason: Worsening of condition Followup: kb - With: Private Physician - When: 2 - 3 days - Reason: Recheck today's complaints, Continuance of care, Re-evaluation by your physician Discharge Instructions: - Discharge Summary Sheet kb - Chronic Obstructive Pulmonary Disease Exacerbation kb Forms: - Medication Reconciliation Form kb - Thank You Letter kb - Antibiotic Education kb - Prescription Opioid Use kb Prescriptions: - Prednisone 20 mg Oral Tablet - take 1 tablet by ORAL route once daily for 5 days; 5 tablet; Refills: 0, kb Product Selection Permitted - Zithromax 500 mg Oral Tablet - take 1 tablet by ORAL route once daily for 5 days; 5 tablet; Refills: 0, kb Product Selection Permitted Signatures: Dispatcher [employer] EDDevi Cardozo, TIMBER ROBBER-C TIMBER ROBBER-Ckb Davon Carlisle MD MD rn Calderon, Audri RN RN aa5 Nichole Bailon RN RN ld1 Joann Sadler RN RN dw3 Corrections: (The following items were deleted from the chart) 12:42 12:41 PSHx: Unable to Obtain; ld1 ld1
--- NOTE | 2021-06-28 14:15 | ER ---
Nurse's Notes [facility] Name: Daquan Landry Age: 56 yrs Sex: Male : 1965 Arrival Date: 06/28/2021 Time: 12:39 Bed 14 Private MD: Diagnosis: COPD/ Chronic obstructive pulmonary disease with (acute) exacerbation Presentation: 06/28 12:40 Chief complaint: EMS states: toned out for SOB. Pt reports SOB \\T\\ cough 2-3 days. Upon ld1 EMS arrival to home pt was 91% RA. Upon arrival to ER pt was 94% RA. Coronavirus screen: At this time, the client does not indicate any symptoms associated with coronavirus-19. Ebola Screen: No symptoms or risks identified at this time. Initial Sepsis Screen: Does the patient meet any 2 criteria? No. Patient's initial sepsis screen is negative. Does the patient have a suspected source of infection? No. Patient's initial sepsis screen is negative. Risk Assessment: Do you want to hurt yourself or someone else? Patient reports no desire to harm self or others. Onset of symptoms was June 28, 2021. 12:40 Method Of Arrival: EMS: [facility] ld1 12:40 Acuity: HENRY 3 ld1 Triage Assessment: 12:41 General: Appears in no apparent distress. uncomfortable, Behavior is cooperative, ld1 appropriate for age, anxious. Pain: Denies pain. EENT: No signs and/or symptoms were reported regarding the EENT system. Neuro: Level of Consciousness is awake, alert, obeys commands, Oriented to person, place, time, situation. Cardiovascular: Capillary refill < 3 seconds Patient's skin is warm and dry. Respiratory: Reports shortness of breath at rest on exertion cough that is non-productive, Airway is patent Respiratory effort is even, labored, Onset: The symptoms/episode began/occurred gradually, the patient has moderate shortness of breath. Historical: - Allergies: 12:41 PENICILLINS; ld1 - Home Meds: 12:41 omeprazole 20 mg Oral cpDR 1 cap once daily [Active]; ld1 - PMHx: 12:41 Psoriatic Arthritis; Chronic obstructive lung disease; Hypertensive disorder; ld1 - PSHx: 12:41 None; ld1 - Immunization history:: Adult Immunizations up to date, Client reports receiving the 2nd dose of the Covid vaccine. - Social history:: Smoking status: Patient reports the use of cigarette tobacco products, smokes three packs cigarettes per day. Patient/guardian denies using alcohol. Screenin:40 Abuse screen: Denies threats or abuse. Nutritional screening: No deficits noted. dw3 Tuberculosis screening: No symptoms or risk factors identified. Fall Risk IV access (20 points). Assessment: 13:15 General: Appears uncomfortable, well groomed, Behavior is calm, cooperative. Pain: dw3 Denies pain. Neuro: Level of Consciousness is awake, alert, obeys commands, Oriented to person, place, time, situation. Cardiovascular: Heart tones S1 S2 present Edema is absent. Rhythm is sinus tachycardia. Respiratory: Reports shortness of breath cough that is productive, Airway is patent Respiratory effort is even, labored, Respiratory pattern is tachypnea Breath sounds are diminished bilaterally. Breath sounds with wheezes bilaterally. GI: Abdomen is non-distended. : No signs and/or symptoms were reported regarding the genitourinary system. EENT: No signs and/or symptoms were reported regarding the EENT system. Derm: Skin is pink, warm \\T\\ dry. Musculoskeletal: Range of motion: intact in all extremities. 13:43 Reassessment: Patient is alert, oriented x 3, equal unlabored respirations, skin dw3 warm/dry/pink. Patient states feeling better. Patient states symptoms have improved. 14:40 Reassessment: Patient is alert, oriented x 3, equal unlabored respirations, skin dw3 warm/dry/pink. Vital Signs: 12:40 BP 144 / 94; Pulse 123; Resp 24; Temp 98.9(TE); Pulse Ox 94% on R/A; Weight 88.9 kg; ld1 Height 5 ft. 11 in. (180.34 cm); Pain 0/10; 13:39 BP 137 / 89; Pulse 108; Resp 30; Pulse Ox 100% on Nebulizer Mask; dw3 13:42 Resp 24; Pulse Ox 99% on R/A; dw3 14:16 BP 128 / 88; Pulse 110; Resp 22; Pulse Ox 94% on R/A; dw3 12:40 Body Mass Index 27.34 (88.90 kg, 180.34 cm) ld1 ED Course: 12:39 Patient arrived in ED. ld1 12:41 Triage completed. ld1 12:41 Patient has correct armband on for positive identification. Bed in low position. Call mb7 light in reach. Side rails up X 1. Door closed. Noise minimized. Warm blanket given. 12:41 Arm band placed on right wrist. ld1 12:44 Devi Raymond FNP-C [facility]. kb 12:44 Davon Carlisle MD is Attending Physician. kb 12:54 EKG done, by tooling engineering tech. reviewed by Devi BEAUCHAMP. mb7 12:55 First set of blood cultures drawn by me. Inserted saline lock: 20 gauge in left 3 forearm, using aseptic technique. Blood collected. 13:00 Initial lab(s) drawn, by me, sent to lab. Second set of blood cultures drawn by me. 3 13:05 COVID-19/FLU A+B (Document "Date of Onset" if Symptomatic) Sent. 7 13:19 XRAY Chest (1 view) In Process Unspecified. EDWI 13:27 Joann Sadler, RN is Primary Nurse. dw3 14:40 No provider procedures requiring assistance completed. 20g left forearm DC'd and 20g dw3 from right AC DC'd. Administered Medications: 13:15 Drug: Ativan (LORazepam) 0.5 mg Route: IVP; Site: left antecubital; dw3 13:27 Drug: Xopenex (levalbuterol) 2.5 mg Route: Inhalation; dw3 Outcome: 14:14 Discharge ordered by MD. kb 14:40 Discharged to home via wheelchair, with family. dw3 14:40 Condition: improved 14:40 Discharge instructions given to patient, family, Instructed on discharge instructions, follow up and referral plans. medication usage, Demonstrated understanding of instructions, follow-up care, medications, Prescriptions given X 2. 14:54 Patient left the ED. dw3 Signatures: Dispatcher [employer] EDWI Devi Raymond FNP-C FNP-Ckb Herrera, Deanna 3 Nichole Bailon RN RN ld1 Ashlee Reyna mb7 Joann Sadler, RN RN dw3 Corrections: (The following items were deleted from the chart) 12:42 12:41 PSHx: Unable to Obtain; ld1 ld1
[2021-06-28 15:01] VITALS: TEMP 98.9
[2021-06-28 15:05] VITALS: BP 128/88; O2SAT 94
--- NOTE | 2021-06-30 11:17 | EKG ---
Test Date: 2021-06-28 Test Time: 12:48:30 Hemp Fiber Taker Off: PEDRITO MEASUREMENT RESULTS: Intervals: Rate: 110 OK: 126 QRSD: 72 QT: 308 QTc: 416 [place]: P: 83 OK: 126 QRS: 91 T: 81 INTERPRETIVE STATEMENTS: Sinus tachycardia Rightward axis Borderline ECG Compared to ECG 08/01/2019 12:27:50 Right-axis deviation now present Fusion complex(es) no longer present Electronically Signed On 06-30-21 11:12:54 CDT by Dallas Thakkar
== END 2021-06-28 14:54 | disposition home or self-care (01) ==
LOC: ER 12:31
DX: J44.1 Chronic obstructive pulmonary disease with (acute) exacerbation (principal); I10 Essential (primary) hypertension; F17.210 Nicotine dependence, cigarettes, uncomplicated; Z20.822 Contact with and (suspected) exposure to COVID-19; Z88.0 Allergy status to penicillin
CPT/HCPCS: 93005; 87040 ×2; 85025; 80048; 36415; 85379; 83605; 84484; 84145; 0240U; 71045; 96374; 99285